=== PATIENT | male | born 1950 | race Two or more races ===

== ENCOUNTER 2016-06-27 16:36 | Emergency (ER) | payer OTHER ==
[2016-06-27 17:22] VITALS: TEMP 98.2
[2016-06-27 17:36] LABS: % IMMATURE GRANULYOCYTES 0.4 % (0.0-1.1); ABSOLUTE IMMATURE GRANULOCYTES 0.02 10^3/uL (0.00-0.10); ADD DIFF? NO; ADD MORPH? NO; ADD SCAN? NO; ATYPICAL LYMPHOCYTE FLAG 0 (0-99); FRAGMENT RBC FLAG 0 (0-99); HEMATOCRIT 44.5 % (40.0-51.0); LEFT SHIFT FLG 0 (0-99); LIPEMIA HEMOLYSIS FLAG 90 (0-99); MEAN CELL HEMOGLOBIN 32.8 pg (27.9-34.1); MEAN CELL VOLUME 91.2 fL (81.5-99.8); MEAN PLATELET VOLUME 11.7 fL (8.7-11.7); PLATELET CLUMPS FLAG 0 (0-99); PLATELET COUNT 126 10^3/uL (150-400); RED BLOOD CELL COUNT 4.88 10^6/uL (4.40-6.38); RED CELL DISTRIBUTION WIDTH 12.3 % (11.5-15.2)
[2016-06-27] MEDS ORDERED: NS 1,000 ML IV ONE (17:38)
[2016-06-27] MEDS ORDERED: KETOROLAC 30 MG/1 ML SDV IVP ONE (17:40)
[2016-06-27 17:49] LABS: ALBUMIN 3.5 g/dL (3.5-5.0); BILIRUBIN,TOTAL 0.9 mg/dL (0.1-1.4); CALCIUM 8.7 mg/dL (8.5-10.4); CREATININE 1.3 mg/dL (0.7-1.3); POTASSIUM 3.8 mEq/L (3.5-5.2)
--- NOTE | 2016-06-27 18:01 | UCPHY ---
H & P Time Seen by Provider: 06/27/16 17:01 Patient Type: New Smoking Status: Heavy smoker Constitutional: Initial Vital Signs Temperature (C) 36.8 C 06/27/16 17:16 Heart Rate 85 06/27/16 17:16 Respiratory Rate 22 H 06/27/16 17:16 Blood Pressure 115/62 06/27/16 17:16 O2 Sat (%) 96 06/27/16 17:16 O2 Delivery Mode Room Air Allergies/Adverse Reactions: No Known Allergies Allergy (Verified 06/27/16 17:16) Home Medications: Medication Instructions Recorded Albuterol Hfa Anes Only [Proair 2 puffs IH Q4 PRN #1 mdi 06/27/16 Hfa Icu (*)] MDM/Departure - MDM Medications Given: Discontinued Medications Sodium Chloride (Ns) 1,000 mls @ 0 mls/hr IV ONCE ONE PRN Reason: Wide Open Stop: 06/27/16 17:39 Last Admin: 06/27/16 17:35 Dose: 1,000 mls Ketorolac Tromethamine (Toradol) 30 mg IVP EDNOW ONE Stop: 06/27/16 17:41 Last Admin: 06/27/16 17:45 Dose: 30 mg ED Course/Re-evaluation: Discussion: Patient with influenza a in a viral bronchitis due to this. I suspect are was also part of this illness. He has mild dehydration. He improved with IV Toradol and saline bolus. I do not think as or lower respiratory infection given lack of rales or hypoxia. Counseled him regarding this and I counseled him to quit smoking. I also discussed his mild hyperglycemia explaining might be prediabetic and follow up with his primary care physician for a recheck after he is over this current illness. - Depart Disposition: Home, Routine, Self-Care Clinical Impression: Influenza A, Dehydration, Hyperglycemia Diarrhea Qualifiers: Diarrhea type: unspecified type Qualifier Code: (R19.7) Diarrhea, unspecified Condition: Good Instructions: Influenza (ED) Additional Instructions: Diagnosis: 1. Influenza A 2. Diarrhea 3. Dehydration 4. Mild hyperglycemia Plan: Quit smoking Drink plenty fluids Albuterol inhaler for cough, wheeze or shortness of breath No work until fever has resolved for more than 24 hours Imodium if needed for any more diarrhea. Blood sugar is a little high. You might be pre-diabetic. Try to avoid excess sugars and follow up with primary care physician for recheck of your glucose once you're over this illness. - PQRS PQRS Measurement: 134: Depression screening and followup, PRIME MD-PHQ2 (12 years and older) Over the last 2 weeks, how often have you been bothered by any of the following problems? 1. Feeling down, depressed, or hopeless? 2. Little interest or pleasure in doing things? Patient answered no to both 1 and 2 130: Documentation of medications. Reviewed all patient medications, doses, route and frequency. 226: Do you smoke? [Yes, counseled to stop.] 47: 65 and older: Advanced care planning. Patient designates surrogate decision maker as his daughter 51: 18 years old and older with diagnosis of COPD, spirometry performance. No history of COPD 52: 18 years old and older with COPD and symptoms of COPD or FEV1<60% predicted prescribed a B Agonist. NA
[2016-06-27 18:44] VITALS: BP 116/64; PULSE 76; RESP 16; O2SAT 95
== END 2016-06-27 18:30 | disposition home or self-care (01) ==
LOC: CED 16:36
DX: J11.1 Influenza due to unidentified influenza virus with other respiratory manifestations (principal); R19.7 Diarrhea, unspecified; E86.0 Dehydration; Z72.0 Tobacco use
CPT/HCPCS: 80053-PO; 85025-PO; 87400-PO; 96361-PO; 96374-PO; G0463-PO; J1885